=== PATIENT | male | born 1985 | race African-American/Black ===

== ENCOUNTER 2017-12-23 13:23 | Emergency (ER) | payer MEDICAID ==
[~2017-12-23] VITALS: Ht 188 cm; Wt 90.0 kg
[2017-12-23] MEDS ORDERED: ACETAMINOPHEN WITH CODEINE 300/30MG TABLET PO ONE (14:30)
[2017-12-23] MEDS ORDERED: TETANUS, DIPHTHERIA, PERTUSSIS VAC/PF 0.5ML (>7YR OLD) IM ONE (14:30)
[2017-12-23] MEDS ORDERED: LIDOCAINE HCL/PF 1% 10 MG/ML 5ML VIAL IJ ONE (14:30)
[2017-12-23] MEDS ORDERED: BACITRACIN ZINC OINT UDPKT TOP ONE (14:30)
[2017-12-23] MEDS ORDERED: IBUPROFEN 800MG TABLET PO ONE (14:30)
[2017-12-23] MEDS ORDERED: LIDOCAINE HCL/PF 1% 10 MG/ML 5ML VIAL ONE (16:14)
[2017-12-23 17:51] VITALS: BP 121/72
== END 2017-12-23 18:29 | disposition home or self-care (01) ==
LOC: ER 13:41
DX: S41.111A Laceration without foreign body of right upper arm, initial encounter (principal); W25.XXXA Contact with sharp glass, initial encounter; Y93.89 Activity, other specified; Y92.9 Unspecified place or not applicable
CPT/HCPCS: 12005; 73080; 90471; 90715; 99284; J3490

== ENCOUNTER 2018-06-12 16:29 | Emergency (ER) | payer MEDICAID, OTHER ==
[~2018-06-12] VITALS: Ht 185.4 cm; Wt 86.0 kg
[2018-06-12] MEDS ORDERED: HYDROCODONE/ACETAMINOPHEN 5/325MG TABLET PO ONE (19:00)
[2018-06-12 19:35] VITALS: BP 112/67
== END 2018-06-12 20:35 | disposition home or self-care (01) ==
LOC: ER 16:29
DX: S62.314A Displaced fracture of base of fourth metacarpal bone, right hand, initial encounter for closed fracture (principal); Y08.89XA Assault by other specified means, initial encounter; Y93.89 Activity, other specified; Y92.89 Other specified places as the place of occurrence of the external cause; Y99.8 Other external cause status
CPT/HCPCS: 29125; 73130; 99283